=== PATIENT | female | born 1960 | race Two or more races ===

== ENCOUNTER 2017-06-30 15:25 | Emergency (ER) | payer OTHER ==
[~2017-06-30] VITALS: Ht 170.2 cm; Wt 59.9 kg
[2017-06-30 15:38] VITALS: BP 117/73
--- NOTE | 2017-06-30 16:01 | NUR ---
PATIENT PRESENTS TO ED WITH C/O BUG BITE ON NAPE X YESTERDAY . ERYTHEMA NOTED AND ABSCESS NOTED;. DENIES N/V/D; SKIN IS PINK/WARM/DRY; AAOX4 WITH EVEN AND STEADY GAIT; LUNGS CLEAR BL; HR EVEN AND REGULAR; PT DENIES ANY FEVER, CP OR COUGH AT THIS TIME; PATIENT STATES PAIN OF 3/10 AT THIS TIME;PATIENT POSITIONED FOR COMFORT; HOB ELEVATED; BEDRAILS UP X2; BED DOWN. ER MD MADE AWARE OF PT STATUS.
--- NOTE | 2017-06-30 16:17 | NUR ---
Patient discharged with v/s stable. Written and verbal after care instructions given and explained. Patient alert, oriented and verbalized understanding of instructions. Ambulatory with steady gait. All questions addressed prior to discharge. ID band removed. Patient advised to follow up with PMD. Rx of CLINDAMYCIN AND MUPIROCIN given. Patient educated on indication of medication including possible reaction and side effects. Opportunity to ask questions provided and answered.
[2017-06-30 16:18] VITALS: BP 126/83
== END 2017-06-30 16:17 | disposition home or self-care (01) ==
LOC: MED 15:25
DX: L03.221 Cellulitis of neck (principal)
CPT/HCPCS: 81002; 99283

== ENCOUNTER 2018-02-19 13:01 | Emergency (ER) | payer MEDICAID ==
[~2018-02-19] VITALS: Ht 172.7 cm; Wt 48.5 kg
[2018-02-19 13:16] VITALS: BP 128/72
--- NOTE | 2018-02-19 13:22 | NUR ---
PT AMBULATES TO BED 2
--- NOTE | 2018-02-19 13:25 | NUR ---
57/F BIB SELF with c/o "burning" bl upper abdomen pain x 1 week, worse today and to epigastric region with nausea. Lack of appetite and feeling "anxious". Patient sts might be related to emotional stress. Patient denies recent injury or v/d. SKIN IS PINK/WARM/DRY; AAOX4 WITH EVEN AND STEADY GAIT; LUNGS CLEAR BL. PATIENT STATES PAIN OF 10/10 AT THIS TIME. PATIENT POSITIONED FOR COMFORT; HOB ELEVATED; BEDRAILS UP X2; BED DOWN. ER MD MADE AWARE OF PT STATUS.
--- NOTE | 2018-02-19 13:37 | NUR ---
Patient being evaluated by DR CARRERO at bedside.
[2018-02-19] MEDS ORDERED: ONDANSETRON 4 MG/2 ML VIAL IVP ONE (13:40)
[2018-02-19] MEDS ORDERED: NACL 0.9% 1,000 ML IV ONE (13:40)
[2018-02-19] MEDS ORDERED: LIDOCAINE VISCOUS 2% 20 ML UDC PO ONE (13:40)
[2018-02-19] MEDS ORDERED: ALUMINUM HYD/MAG/SIMETHICONE 30 ML UDC PO ONE (13:40)
[2018-02-19] MEDS ORDERED: DICYCLOMINE HCL LIQUID 10 MG/5 ML UDC PO ONE (13:40)
[2018-02-19] MEDS ORDERED: PANTOPRAZOLE 40 MG INJ VIAL IVP ONE (13:45)
[2018-02-19 15:16] VITALS: BP 119/67
--- NOTE | 2018-02-19 15:16 | NUR ---
Patient discharged with v/s stable. Written and verbal after care instructions given and explained. Patient alert, oriented and verbalized understanding of instructions. Ambulatory with steady gait. All questions addressed prior to discharge. ID band removed. Patient advised to follow up with PMD. Rx of OMEPRAZOLE & MAALOX given. Patient educated on indication of medication including possible reaction and side effects. Opportunity to ask questions provided and answered.
== END 2018-02-19 15:16 | disposition home or self-care (01) ==
LOC: MED 13:01
DX: K29.70 Gastritis, unspecified, without bleeding (principal)
CPT/HCPCS: 81002; 81025; 96361; 96374; 96375; 99284; C9113; J2405; J7030

== ENCOUNTER 2018-07-12 12:23 | Emergency (ER) | payer MEDICAID ==
[~2018-07-12] VITALS: Ht 172.7 cm; Wt 56.4 kg
[2018-07-12 13:40] VITALS: BP 144/89
--- NOTE | 2018-07-12 13:45 | NUR ---
AFTER PROVIDING URINE SAMPLE, PT AMBULATES BACK TO THE LOBBY
--- NOTE | 2018-07-12 13:55 | NUR ---
PATIENT AMBULATED TO ER BED 9.
--- NOTE | 2018-07-12 14:00 | NUR ---
57yo BIB SELF W/C/O GENERLIZED ABD PAIN X TODAY AND N/D/D X2DAYS. X 2 EPISODES OF VOMITING TODAY -DIARRHEA TODAY, BS ACTIVE X4, ABD SOFT AND TENDER WITH LIGHT PALPATION THROUGHOUT. LS CLEAR, RR EVEN AND UNLABORED. PT DENIES ANY SOB, CP, FEVERS AT THIS TIME. ER MD MADE AWARE. WILL CONTINUE TO MONITOR.
[2018-07-12] MEDS ORDERED: DICYCLOMINE HCL LIQUID 20 MG, ALUMINUM HYD/MAG/SIMETHICONE 30 ML, LIDOCAINE VISCOUS 2% ... PO ONE ×3 (15:20)
--- NOTE | 2018-07-12 15:33 | NUR ---
PT DENIES ANY PAIN AT THIS TIME. PT RESTING IN NO APPEARENT DISTRESS AT THIS TIME, RR EVEN AND UNLABORED, WILL CONTINUE TO MONITOR
--- NOTE | 2018-07-12 16:13 | NUR ---
DR PANDA AT BEDSIDE.
[2018-07-12 16:58] VITALS: BP 137/79
--- NOTE | 2018-07-12 16:58 | NUR ---
Patient discharged with v/s stable. Written and verbal after care instructions given and explained. Patient alert, oriented and verbalized understanding of instructions. Ambulatory with steady gait. All questions addressed prior to discharge. ID band removed. Patient advised to follow up with PMD. Rx of IMODIUM, ZOFRAN, MOTRIN, PRILOSEC given. Patient educated on indication of medication including possible reaction and side effects. Opportunity to ask questions provided and answered.
== END 2018-07-12 16:58 | disposition home or self-care (01) ==
LOC: MED 12:23
DX: R10.13 Epigastric pain (principal); R11.2 Nausea with vomiting, unspecified; R19.7 Diarrhea, unspecified; R68.83 Chills (without fever); F17.200 Nicotine dependence, unspecified, uncomplicated
CPT/HCPCS: 81002; 81025; 99283

== ENCOUNTER 2018-07-20 09:59 | Emergency (ER) | payer MEDICAID ==
[~2018-07-20] VITALS: Ht 172.7 cm; Wt 57.6 kg
[2018-07-20 10:02] VITALS: BP 127/75
[2018-07-20] MEDS ORDERED: IBUP-2213 PO (10:22)
[2018-07-20] MEDS ORDERED: ONDA8TAB PO (10:23)
[2018-07-20] MEDS: MORPHINE SULFATE 4 MG/ML SYR IVP ONE (10:47)
[2018-07-20] MEDS: FAMOTIDINE 20 MG/2 ML VIAL IVP ONE (10:47)
[2018-07-20] MEDS: METOCLOPRAMIDE 10 MG/2 ML INJ VIAL IVP ONE (10:48)
[2018-07-20] MEDS: NACL 0.9% 1,000 ML IV SCH (10:49)
[2018-07-20] MEDS: DICYCLOMINE HCL LIQUID 10 MG/5 ML UDC PO ONE (10:49)
[2018-07-20] MEDS: LEVOFLOXACIN 500 MG/D5W PREMIX 100 ML IV ONE (10:49)
[2018-07-20 11:02] LABS: BASOPHILS % (AUTO) 0.8 % (0.0-2.0); EOSINOPHILS # (AUTO) 0.1 K/uL (0-0.4); EOSINOPHILS % (AUTO) 1.6 % (0.0-4.0); HEMATOCRIT 25.9 % (36-48); LYMPHOCYTES # (AUTO) 1.3 K/uL (2.5-16.5); LYMPHOCYTES % (AUTO) 22.3 % (20.5-51.1); MEAN CORPUSCULAR HEMOGLOBIN 23 pg (27-31); MEAN CORPUSCULAR HGB CONC 31 g/dL (33-37); MEAN CORPUSCULAR VOLUME 73.7 fL (80-94); MONOCYTES # (AUTO) 0.5 K/uL (0.8-1.0); NEUTROPHILS # (AUTO) 3.8 K/uL (1.8-7.7); NEUTROPHILS % (AUTO) 66.3 % (42.2-75.2); PLATELET COUNT (AUTO) 344 K/uL (140-450); RED BLOOD CELL COUNT(AUTO) 3.51 MIL/uL (4.20-5.40); RED CELL DISTRIBUTION WIDTH 21.2 % (11.6-13.7); WHITE BLOOD COUNT (AUTO) 5.7 K/uL (4.8-10.8)
[2018-07-20 11:05] LABS: ALBUMIN 3.8 g/dL (3.4-5.0); ANION GAP 11.2 (8-16); CARBON DIOXIDE 28.5 mmol/L (21-32); CREATININE 0.7 mg/dL (0.6-1.3); POTASSIUM 3.7 mmol/L (3.5-5.1); TOTAL BILIRUBIN 0.4 mg/dL (0.0-1.0)
[2018-07-20] MEDS: NACL 0.9% 1,000 ML IV ONE (11:14)
[2018-07-20 11:18] LABS: BILIRUBIN,URINE NEGATIVE (NEGATIVE); BLOOD, URINE NEGATIVE (NEGATIVE); COLOR,URINE YELLOW (YELLOW); NITRITE, URINE POSITIVE (NEGATIVE); UGLUCOSE NEGATIVE (NEGATIVE)
[2018-07-20 11:19] LABS: APPEARANCE,URINE CLOUDY (CLEAR); LEUKOCYTE ESTERASE ,URINE 2+ (NEGATIVE)
[2018-07-20 11:20] LABS: RBC,URINE 0-5 (RARE) /HPF (0-5); WBC,URINE 6-15 (FEW) /HPF (0-5)
[2018-07-20] MEDS ORDERED: HYDR-5122 PO (11:20)
[2018-07-20] MEDS ORDERED: DOCU-299 PO (11:20)
[2018-07-20] MEDS ORDERED: GABA300C PO (11:20)
[2018-07-20] MEDS ORDERED: OMEP20TC12 PO (11:20)
[2018-07-20] MEDS ORDERED: MESA800T PO (11:20)
[2018-07-20] MEDS ORDERED: DULO20EC PO (11:20)
[2018-07-20] MEDS ORDERED: CYCL10TA13 PO (11:20)
[2018-07-20] MEDS ORDERED: SYN.1 PO (11:20)
[2018-07-20] MEDS ORDERED: TRAZ-343 PO (11:20)
[2018-07-20] MEDS ORDERED: DIT5 PO (11:20)
[2018-07-20] MEDS ORDERED: ZYL300 PO (11:20)
[2018-07-20 12:53] VITALS: BP 132/48
== END 2018-07-20 12:51 | disposition home or self-care (01) ==
LOC: MED 09:59
DX: K29.81 Duodenitis with bleeding (principal); N39.0 Urinary tract infection, site not specified; D53.9 Nutritional anemia, unspecified; Z79.899 Other long term (current) drug therapy; Z79.1 Long term (current) use of non-steroidal anti-inflammatories (NSAID)
CPT/HCPCS: 36415; 74177; 80053; 81001; 82150; 83690; 85025; 87086; 87186; 96365; 96375; 99284; J1956; J2270; J2765; J3490; J7030; Q9967

== ENCOUNTER 2018-09-02 16:03 | Emergency (ER) | payer MEDICAID ==
[~2018-09-02] VITALS: Ht 172.7 cm; Wt 63.6 kg
[~2018-09-02 16:03] MED LIST: CYCL10TA13 PO; DIT5 PO; DOCU-299 PO; DULO20EC PO; GABA300C PO; HYDR-5122 PO; IBUP-2213 PO; MESA800T PO; OMEP20TC12 PO; ONDA8TAB PO; SYN.1 PO; TRAZ-343 PO; ZYL300 PO
[2018-09-02 16:25] VITALS: BP 152/87
--- NOTE | 2018-09-02 16:30 | NUR ---
BIB FRIEND WITH C/O N/V/D, LOWER ABDOMINAL PAIN, BURNING URINATION WITH YELLOWISH DISCHARGE X 2 DAYS; LAST PCN WAS YESTERDAY FROM A FRIEND X 2 WKS.SKIN IS PINK/WARM/DRY; AAOX4 WITH EVEN AND STEADY GAIT; LUNGS CLEAR BL; HR EVEN AND REGULAR; PT DENIES ANY FEVER, CP, SOB, OR COUGH AT THIS TIME; PATIENT STATES PAIN OF 3/10 AT THIS TIME. PATIENT POSITIONED FOR COMFORT; HOB ELEVATED; BEDRAILS UP X2; BED DOWN. ER MD MADE AWARE OF PT STATUS.
[2018-09-02] MEDS ORDERED: ALUMINUM HYD/MAG/SIMETHICONE 30 ML UDC PO ONE (16:55)
[2018-09-02] MEDS ORDERED: FAMOTIDINE 20 MG TAB PO ONE (16:55)
--- NOTE | 2018-09-02 17:10 | NUR ---
PELVIC EXAM DONE BY DR VAUGHN. SPECIMEN SENT TO LAB.
[2018-09-02 17:30] LABS: BILIRUBIN,URINE NEGATIVE (NEGATIVE); BLOOD, URINE NEGATIVE (NEGATIVE); COLOR,URINE YELLOW (YELLOW); LEUKOCYTE ESTERASE ,URINE NEGATIVE (NEGATIVE); NITRITE, URINE NEGATIVE (NEGATIVE); PH,URINE 7.5 (5.0-9.0); UGLUCOSE NEGATIVE (NEGATIVE)
[2018-09-02 17:31] LABS: APPEARANCE,URINE CLOUDY (CLEAR)
[2018-09-02 18:32] VITALS: BP 129/83
--- NOTE | 2018-09-02 18:37 | NUR ---
Patient discharged with v/s stable. Written and verbal after care instructions given and explained. Patient alert, oriented and verbalized understanding of instructions. Ambulatory with steady gait. All questions addressed prior to discharge. ID band removed. Patient advised to follow up with PMD. Rx of Flagyl given. Patient educated on indication of medication including possible reaction and side effects. Opportunity to ask questions provided and answered.
[2018-09-04 18:53] LABS: CHLAMYDIA TRACHOMATIS AMP DNA POSITIVE (NEGATIVE)
--- NOTE | 2018-09-05 09:08 | NUR ---
ADDENDUM:FROM 09/04/18 PATIENT POSITIVE FOR CHLAMYDIA. REFERRED TO DR. DIXON.PRESCRIPTION OF DOXYCYCLINE 100MG 1 CAP. PO BID. DISPENSED 14 CAPS. SPOKE TO PATIENT WILL ADMINISTRATIVE LAW JUDGE PRESCRIPTION.
--- NOTE | 2018-09-05 17:08 | NUR ---
ADDENDUM: PATIENT ADVISED TO STOP FLAGYL AND START TAKING DOXYCYCLINE WITH UNDERSTANDING PER DR. CARRERO
== END 2018-09-02 18:37 | disposition home or self-care (01) ==
LOC: MED 16:03
DX: N76.0 Acute vaginitis (principal); B96.89 Other specified bacterial agents as the cause of diseases classified elsewhere; A63.0 Anogenital (venereal) warts; R03.0 Elevated blood-pressure reading, without diagnosis of hypertension; F17.210 Nicotine dependence, cigarettes, uncomplicated; Z79.899 Other long term (current) drug therapy
CPT/HCPCS: 36415; 81003; 81025; 87070; 87205; 87210; 87491; 99283

== ENCOUNTER 2018-09-06 08:46 | Emergency (ER) | payer MEDICAID ==
[~2018-09-06] VITALS: Ht 172.7 cm; Wt 63.6 kg
[2018-09-06 09:10] VITALS: BP 132/64
[2018-09-06 09:53] LABS: BASOPHILS # (AUTO) 0.1 K/uL (0.00-0.22); BASOPHILS % (AUTO) 0.7 % (0.0-2.0); EOSINOPHILS % (AUTO) 0.3 % (0.0-4.0); HEMATOCRIT 34.7 % (36-48); HEMOGLOBIN 10.7 g/dL (12.0-16.0); LYMPHOCYTES # (AUTO) 1.2 K/uL (2.5-16.5); LYMPHOCYTES % (AUTO) 14.6 % (20.5-51.1); MEAN CORPUSCULAR HEMOGLOBIN 25 pg (27-31); MEAN CORPUSCULAR HGB CONC 31 g/dL (33-37); MEAN CORPUSCULAR VOLUME 79.4 fL (80-94); MONOCYTES # (AUTO) 0.4 K/uL (0.8-1.0); MONOCYTES % (AUTO) 4.6 % (1.7-9.3); NEUTROPHILS # (AUTO) 6.7 K/uL (1.8-7.7); NEUTROPHILS % (AUTO) 79.8 % (42.2-75.2); PLATELET COUNT (AUTO) 264 K/uL (140-450); RED BLOOD CELL COUNT(AUTO) 4.37 MIL/uL (4.20-5.40); RED CELL DISTRIBUTION WIDTH 21.3 % (11.6-13.7); WHITE BLOOD COUNT (AUTO) 8.3 K/uL (4.8-10.8)
[2018-09-06 10:13] LABS: ALBUMIN 4.1 g/dL (3.4-5.0); ANION GAP 9.4 (8-16); CARBON DIOXIDE 30.7 mmol/L (21-32); CREATININE 0.7 mg/dL (0.6-1.3); POTASSIUM 4.1 mmol/L (3.5-5.1); TOTAL BILIRUBIN 0.3 mg/dL (0.0-1.0)
[2018-09-06] MEDS: ONDANSETRON 4 MG ODT PO ONE (10:21)
[2018-09-06] MEDS: FAMOTIDINE 20 MG TAB PO ONE (11:21)
[2018-09-06 12:00] VITALS: BP 129/78
== END 2018-09-06 12:00 | disposition home or self-care (01) ==
LOC: MED 08:46
DX: R10.13 Epigastric pain (principal); R11.2 Nausea with vomiting, unspecified; F17.210 Nicotine dependence, cigarettes, uncomplicated; Z59.0 Homelessness; Z79.899 Other long term (current) drug therapy
CPT/HCPCS: 36415; 76705; 80053; 81002; 81025; 85025; 93005; 99284; Q0092; Q0162

== ENCOUNTER 2018-09-19 23:11 | Emergency (ER) | payer MEDICAID ==
[~2018-09-19] VITALS: Ht 172.7 cm; Wt 63.5 kg
[2018-09-19 23:18] VITALS: BP 142/83
--- NOTE | 2018-09-19 23:25 | NUR ---
PT AMBULATED TO BED 12 WITH VSS.
--- NOTE | 2018-09-19 23:30 | NUR ---
PT PRESENTS TO ED WITH C/O AMB CRAMPING AND PER PT "IM LIVING IN MY CAR AND THERE IS WHITE BUGS IN THERE AND I THINK THEY GOT IN MY HAIR". NO INSECTS SEEN IN PT HAIR OR BODY. ABD IS SOFT NON TENDER. PT PLACED INTO BED, PENDING MD GALINDO.
[2018-09-20 00:01] VITALS: BP 142/83
--- NOTE | 2018-09-20 00:08 | NUR ---
Patient discharged with v/s stable. Written and verbal after care instructions given and explained. Patient alert, oriented and verbalized understanding of instructions. Ambulatory with steady gait. All questions addressed prior to discharge. ID band removed. Patient advised to follow up with PMD. Rx of PERMETHRIN given. Patient educated on indication of medication including possible reaction and side effects. Opportunity to ask questions provided and answered.
== END 2018-09-20 00:03 | disposition home or self-care (01) ==
LOC: MED 23:11
DX: F29 Unspecified psychosis not due to a substance or known physiological condition (principal); F17.210 Nicotine dependence, cigarettes, uncomplicated; Z59.0 Homelessness; Z79.899 Other long term (current) drug therapy
CPT/HCPCS: 99283

== ENCOUNTER 2018-09-23 19:20 | Emergency (ER) | payer MEDICAID ==
[~2018-09-23] VITALS: Ht 172.7 cm; Wt 63.5 kg
[2018-09-23 19:34] VITALS: BP 132/74
[2018-09-23] MEDS ORDERED: LORazepam 1 MG TAB PO ONE (20:40)
[2018-09-23 21:10] LABS: BARBITURATE, URINE NEG. ng/ml (NEG <=200); BENZODIAZEPINE, URINE NEG. ng/mL (NEG <=200); CANNABINOID, URINE NEG. ng/mL (NEG <=50); COCAINE, URINE NEG. ng/mL (NEG <=300); OPIATE, URINE NEG. ng/mL (NEG <=2000); PHENCYCLIDINE SCREEN,URINE NEG. ng/mL (NEG <=25)
[2018-09-23 22:00] VITALS: BP 128/69
== END 2018-09-23 21:28 | disposition home or self-care (01) ==
LOC: MED 19:20
DX: R20.2 Paresthesia of skin (principal); F15.10 Other stimulant abuse, uncomplicated; F10.10 Alcohol abuse, uncomplicated; Z79.899 Other long term (current) drug therapy
CPT/HCPCS: 80305; 81002; 81025; 99283

== ENCOUNTER 2019-08-30 19:27 | Emergency (ER) | payer MEDICAID ==
[~2019-08-30] VITALS: Ht 172.7 cm; Wt 63.5 kg
[2019-08-30 19:30] VITALS: BP 129/90
--- NOTE | 2019-08-30 19:30 | NUR ---
TO BED # 07 VIA WHEELCHAIR
--- NOTE | 2019-08-30 20:00 | NUR ---
58 YO F BIB SELF PRESENTS TO ED C/O 04/09 BURNING NON RADIATING RUQ PAIN THAT COMES AND GOES X 24 HOURS ACCOMPANIED BY N/V. PT REPORTS HX OF PEPTIC ULCERS. 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 DENIES BLOOD IN VOMIT, DIARRHEA, FEVER. PMH-- PEPTIC ULCERS, ANEMIA RX-- DENIES
--- NOTE | 2019-08-30 20:20 | NUR ---
DR. JOSE L GALINDO AT BEDSIDE.
[2019-08-30] MEDS ORDERED: ONDANSETRON 4 MG/2 ML VIAL IVP ONE (20:25)
[2019-08-30] MEDS ORDERED: KETOROLAC 30 MG/ML VIAL IVP ONE (20:25)
[2019-08-30] MEDS ORDERED: NACL 0.9% 1,000 ML IV ONE ×2 (20:25→22:30)
[2019-08-30] MEDS ORDERED: PANTOPRAZOLE 40 MG INJ VIAL IVP ONE (20:25)
--- NOTE | 2019-08-30 20:50 | NUR ---
PT ROLLING AROUND WITH ERRATIC MOVEMENTS IN BED. MOANING AND SPEAKING UNINTELIGIBLY. VSS. PT ADMITS TO USING SPEED 2-3 HOURS AGO. WILL CONTINUE TO MONITOR.
--- NOTE | 2019-08-30 21:00 | NUR ---
MEDICATED WITH 4 MG IVP ZOFRAN, 40 MG IVP PROTONIX, AND 30 MG IVP TORADOL FOR ABD PAIN. WILL REASSESS.
--- NOTE | 2019-08-30 21:30 | NUR ---
REPORTS MILD PAIN RELIEF. PT STATES "I STILL FEEL WEIRD". RESTLESS ACTIVITY NOTED. PT STATES THE PAIN WENT AWAY FOR A LITTLE BIT BUT THEN CAME BACK. Addendum: 08/30/19 at 2152 [address] [facility] [address]. DOMINGO MADE AWARE.
[2019-08-30 21:42] LABS: CARBON DIOXIDE 31.2 mmol/L (21-32); POTASSIUM 3.2 mmol/L (3.5-5.1)
[2019-08-30 21:49] LABS: ALBUMIN 4.6 g/dL (3.4-5.0)
[2019-08-30] MEDS ORDERED: DICYCLOMINE HCL LIQUID 20 MG, ALUMINUM HYD/MAG/SIMETHICONE 30 ML, LIDOCAINE VISCOUS 2% ... PO ONE ×3 (21:50)
[2019-08-30] MEDS ORDERED: LIDOCAINE VISCOUS 2% 20 ML UDC ONE (21:53)
[2019-08-30] MEDS ORDERED: ALUMINUM HYD/MAG/SIMETHICONE 30 ML UDC ONE (21:54)
[2019-08-30] MEDS ORDERED: DICYCLOMINE HCL LIQUID 10 MG/5 ML UDC ONE (21:54)
[2019-08-30] MEDS ORDERED: POTASSIUM CHLORIDE 10 MEQ TABER PO ONE (22:00)
[2019-08-30 22:08] LABS: HEMATOCRIT 47.2 % (36-48); HEMOGLOBIN 15.4 g/dL (12.0-16.0); MEAN CORPUSCULAR HEMOGLOBIN 30 pg (27-31); MEAN CORPUSCULAR HGB CONC 33 g/dL (33-37); MEAN CORPUSCULAR VOLUME 92.3 fL (80-94); PLATELET COUNT (AUTO) 297 K/uL (140-450); RED BLOOD CELL COUNT(AUTO) 5.12 MIL/uL (4.20-5.40); RED CELL DISTRIBUTION WIDTH 13.7 % (11.6-13.7); WHITE BLOOD COUNT (AUTO) 19.1 K/uL (4.8-10.8)
--- NOTE | 2019-08-30 22:10 | NUR ---
MEDICATED WITH GI COCKTAIL FOR 7/10 ABD PAIN. WILL REASSESS.
--- NOTE | 2019-08-30 22:10 | NUR ---
URINE COLLECTED AND GIVEN TO LAB.
[2019-08-30] MEDS ORDERED: MORPHINE SULFATE 4 MG/ML SYR IVP ONE (22:15)
--- NOTE | 2019-08-30 22:19 | NUR ---
XRAY AT BEDSIDE.
[2019-08-30 22:23] LABS: LYMPHOCYTES % (MANUAL) 4 % (20-46); MONOCYTES % (MANUAL) 4 % (5-12)
--- NOTE | 2019-08-30 22:35 | NUR ---
MEDICATED WITH 4 MG IVP MORPHINE FOR 6/10 ABD PAIN. WILL REASSESS.
--- NOTE | 2019-08-30 22:41 | NUR ---
PT TAKEN TO CT BY
[2019-08-30 22:56] LABS: APPEARANCE,URINE SL CLOUDY (CLEAR); BILIRUBIN,URINE 2+ (NEGATIVE); BLOOD, URINE NEGATIVE (NEGATIVE); COLOR,URINE YELLOW (YELLOW); LEUKOCYTE ESTERASE ,URINE 1+ (NEGATIVE); NITRITE, URINE NEGATIVE (NEGATIVE); UGLUCOSE NEGATIVE (NEGATIVE)
--- NOTE | 2019-08-30 23:00 | NUR ---
RETURNED FROM CT VIA .
--- NOTE | 2019-08-30 23:00 | NUR ---
Note [place] in EDM - 08/30/19 at 2342 by [facility] RESTING QUIETLY WITH EYES CLOSED. AROUSABLE TO VERBAL STIMULI. REPORTS RELIEF IN PAIN; 09/09. MORPHINE EFFECTIVE.
[2019-08-30 23:04] LABS: BARBITURATE, URINE NEG. ng/ml (NEG <=200); BENZODIAZEPINE, URINE NEG. ng/mL (NEG <=200); CANNABINOID, URINE NEG. ng/mL (NEG <=50); COCAINE, URINE NEG. ng/mL (NEG <=300); OPIATE, URINE NEG. ng/mL (NEG <=2000); PHENCYCLIDINE SCREEN,URINE NEG. ng/mL (NEG <=25)
--- NOTE | 2019-08-30 23:10 | NUR ---
RESTING QUIETLY WITH EYES CLOSED. AROUSABLE TO VERBAL STIMULI. REPORTS RELIEF IN PAIN; 09/09. MORPHINE EFFECTIVE.
[2019-08-30] MEDS ORDERED: PIPERACILLIN/TAZOBACTAM 3.375 GM in DEXTROSE 5% 50 ML IV ONE (23:35)
--- NOTE | 2019-08-30 23:42 | NUR ---
[facility]T PERFORMING EKG AT BEDSIDE.
[2019-08-30] MEDS ORDERED: PIPERACILLIN/TAZOBACTAM 3.375 GM VIAL IV ONE (23:45)
[2019-08-30 23:55] LABS: RBC,URINE 0-5 /HPF (0-5)
[2019-08-30 23:56] LABS: CALCIUM OXALATE CRYSTALS,UR 0-10 /HPF (None Seen); HYALINE CASTS, URINE 0-10 /LPF (None Seen)
[2019-08-31] MEDS ORDERED: MORPHINE SULFATE 4 MG/ML SYR IVP ONE (00:15)
--- NOTE | 2019-08-31 00:24 | NUR ---
MORPHINE 4MG GIVEN ORDERED BY DR. DOMINGO. PATIENT SHOWED UP DC ON PIXIS, CONTINUED TO PULL MEDICATION THE PATIENT IS AWAITING TRANSFER AND HAS NOT BEEN DISCHARGED AT THIS TIME.
--- NOTE | 2019-08-31 01:00 | NUR ---
REPORTS PAIN RELIEF; 09/09. RESTING WITH EYES CLOSED. CURLED UP IN POSITION. AROUSABLE TO VERBAL STIMULI. VSS.
--- NOTE | 2019-08-31 01:15 | NUR ---
Patient to be transferred to [facility]. Is being transferred due to higher level of care. Receiving facility has accepting physician and available space. ER physician has signed transfer form. Patient or responsible republican has agreed to transfer and signed form. Patient belongings inventoried and will be sent with patient. Copy of nursing notes, lab reports, EKG, Physicians Orders and X-rays to be sent with patient. Report called to receiving RN at receiving facility. [facility] ambulance service has been called for transfer. ETA is 90 mins.
--- NOTE | 2019-08-31 02:43 | NUR ---
[facility] TRANSPORT WILL BE DELAYED APPROX X 1 HOUR.
--- NOTE | 2019-08-31 03:00 | NUR ---
RESTING WITH EYES CLOSED, LAYING ON SIDE, BREATHING DEEPLY. RESPIRATIONS EVEN, UNLABORED. AROUSABLE TO VERBAL STIMULI. PT STATES SHE IS FEELING BETTER AND SHE JUST WANTS TO SLEEP. VSS.
--- NOTE | 2019-08-31 03:29 | NUR ---
[facility] called to inform us that they are still on bed delay. States they are delaying transport for another hour.
[2019-08-31 04:39] VITALS: BP 120/85
--- NOTE | 2019-08-31 04:39 | NUR ---
[facility] AT BEDSIDE FOR TRANSPORT TO [facility]. REPORT GIVEN TO MEDIC. PT STABLE AT THIS TIME. AMBULATES TO [facility] WITH STEADY GAIT.
--- NOTE | 2019-08-31 06:22 | NUR ---
Spoke to Asim with [facility]. Transport packet handed to unit. Unit left packed at bedside with CD. Asim states she will notify her logging crew supervisor regarding packet and CD to have it transported to [facility].
--- NOTE | 2019-08-31 06:48 | NUR ---
Spoke to Erasmo LUNA at [facility]. ANNEMARIE picked up packet and CD and transporting now.
== END 2019-08-31 04:39 | disposition short-term general hospital (02) ==
LOC: MED 19:27
DX: K26.1 Acute duodenal ulcer with perforation (principal); E87.6 Hypokalemia; F15.10 Other stimulant abuse, uncomplicated; N39.0 Urinary tract infection, site not specified; I10 Essential (primary) hypertension; E11.9 Type 2 diabetes mellitus without complications; F17.210 Nicotine dependence, cigarettes, uncomplicated; F12.10 Cannabis abuse, uncomplicated; Z79.899 Other long term (current) drug therapy
CPT/HCPCS: 36415; 71045; 74176; 80053; 80305; 81001; 83605; 83690; 85025; 87040; 87086; 87186; 93005; 96361; 96365; 96375; 96376; 99285; C9113; J1885; J2270; J2405; J2543; J7030; Q0092

== ENCOUNTER 2023-08-10 10:36 | Emergency (ER) | payer MEDICAID ==
[~2023-08-10] VITALS: Ht 172.7 cm; Wt 63.5 kg
[~2023-08-10 10:36] MED LIST changes: +CYCL-655 PO; -CYCL10TA13 PO; -DIT5 PO; +OMEP-278 PO; -OMEP20TC12 PO; -ONDA8TAB PO; +ONDA8TAB87 PO; +OXYB5TAB44 PO
[2023-08-10 11:07] VITALS: BP 132/75; PULSE 77; RESP 20; TEMP 97.9; O2SAT 98
[2023-08-10] MEDS ORDERED: KETOROLAC 30 MG/ML VIAL IM ONE (11:15)
[2023-08-10 11:47] LABS: APPEARANCE,URINE CLEAR (CLEAR); BILIRUBIN,URINE NEGATIVE (NEGATIVE); BLOOD, URINE TRACE-I (NEGATIVE); COLOR,URINE YELLOW (YELLOW); LEUKOCYTE ESTERASE ,URINE NEGATIVE (NEGATIVE); NITRITE, URINE NEGATIVE (NEGATIVE); PROTEIN,URINE NEGATIVE (NEGATIVE); UGLUCOSE NEGATIVE (NEGATIVE); UROBILINOGEN,URINE 0.2 EU/dL (0.2 - 1)
[2023-08-10 11:55] LABS: BACTERIA,URINE FEW /HPF (None Seen); SQUAMOUS EPITHELIAL CELL,UR 4-10 (MOD) /LPF (0-3 (FEW)); WBC,URINE 0-5 /HPF (0-5)
[2023-08-10 12:23] LABS: FLU A ANTIGEN negative (NEGATIVE)
[2023-08-10 12:24] LABS: FLU B ANTIGEN negative (NEGATIVE)
[2023-08-10] MEDS ORDERED: CETI-264 PO ×2 (12:27→13:06)
[2023-08-10] MEDS ORDERED: PYR100 PO ×2 (12:27→13:05)
[2023-08-10] MEDS ORDERED: AMOX-1230 PO ×2 (12:27→13:06)
[2023-08-10] MEDS ORDERED: IBUP-2213 PO ×2 (12:27→13:05)
== END 2023-08-10 12:38 | disposition home or self-care (01) ==
LOC: MED 10:36
DX: J06.9 Acute upper respiratory infection, unspecified (principal); Z20.822 Contact with and (suspected) exposure to COVID-19; K04.7 Periapical abscess without sinus; R35.0 Frequency of micturition; Z79.899 Other long term (current) drug therapy
CPT/HCPCS: 81001; 81025; 87426; 87804; 96372; 99283; J1885

== ENCOUNTER 2024-02-07 14:42 | Emergency (ER) | payer MEDICAID ==
[~2024-02-07] VITALS: Ht 172.7 cm; Wt 63.5 kg
[~2024-02-07 14:42] MED LIST changes: +AMOX-1230 PO; +CETI-264 PO; +PYR100 PO
[2024-02-07 14:51] VITALS: PULSE 91; RESP 16; TEMP 98.8; O2SAT 98
[2024-02-07 15:29] LABS: BASOPHILS # (AUTO) 0.1 K/uL (0.00-0.22); BASOPHILS % (AUTO) 0.4 % (0.0-2.0); EOSINOPHILS # (AUTO) 0.1 K/uL (0-0.4); EOSINOPHILS % (AUTO) 0.6 % (0.0-4.0); HEMOGLOBIN 12.8 g/dL (12.0-16.0); LYMPHOCYTES # (AUTO) 2.1 K/uL (2.5-16.5); LYMPHOCYTES % (AUTO) 15.7 % (20.5-51.1); MEAN CORPUSCULAR HEMOGLOBIN 31 pg (27-31); MEAN CORPUSCULAR HGB CONC 34 g/dL (33-37); MEAN CORPUSCULAR VOLUME 91.1 fL (80-94); MONOCYTES # (AUTO) 1.2 K/uL (0.8-1.0); MONOCYTES % (AUTO) 8.8 % (1.7-9.3); NEUTROPHILS # (AUTO) 10.2 K/uL (1.8-7.7); NEUTROPHILS % (AUTO) 74.5 % (42.2-75.2); PLATELET COUNT (AUTO) 317 K/uL (140-450); RED BLOOD CELL COUNT(AUTO) 4.17 MIL/uL (4.20-5.40); RED CELL DISTRIBUTION WIDTH 13.7 % (11.6-13.7); WHITE BLOOD COUNT (AUTO) 13.6 K/uL (4.8-10.8)
[2024-02-07 15:38] LABS: ANION GAP 12.2 (8-16); CARBON DIOXIDE 29.1 mmol/L (21-32); CREATININE 0.8 mg/dL (0.6-1.3); POTASSIUM 4.3 mmol/L (3.5-5.1)
[2024-02-07 15:44] LABS: ALBUMIN 3.8 g/dL (3.4-5.0); BILIRUBIN,DIRECT 0.2 mg/dL (0.0-0.3); TOTAL BILIRUBIN 0.9 mg/dL (0.0-1.0); TOTAL PROTEIN, SERUM 7.8 g/dL (6.4-8.2)
[2024-02-07 16:44] LABS: BILIRUBIN,URINE NEGATIVE (NEGATIVE); BLOOD, URINE NEGATIVE (NEGATIVE); COLOR,URINE YELLOW (YELLOW); LEUKOCYTE ESTERASE ,URINE TRACE (NEGATIVE); NITRITE, URINE NEGATIVE (NEGATIVE); PROTEIN,URINE NEGATIVE (NEGATIVE); UGLUCOSE NEGATIVE (NEGATIVE); UROBILINOGEN,URINE 0.2 EU/dL (0.2 - 1)
[2024-02-07 16:47] LABS: APPEARANCE,URINE SLIGHTLY HAZY (CLEAR)
[2024-02-07 16:49] LABS: BACTERIA,URINE 1+ /HPF (None Seen); RBC,URINE 0 /HPF (0-5); WBC,URINE 0-5 /HPF (0-5)
[2024-02-07 16:50] LABS: MUCUS,URINE None Seen /LPF (None Seen); SQUAMOUS EPITHELIAL CELL,UR 0-3 (FEW) /LPF (0-3 (FEW))
== END 2024-02-07 17:05 | disposition home or self-care (01) ==
LOC: MED 14:42
DX: R10.9 Unspecified abdominal pain (principal); R21 Rash and other nonspecific skin eruption; Z79.899 Other long term (current) drug therapy
CPT/HCPCS: 36415; 80048; 80076; 81001; 83690; 85025; 99283